=== PATIENT | female | born 1960 | race African-American/Black ===

== ENCOUNTER 2016-06-19 13:35 | Emergency (ER) | payer OTHER ==
[~2016-06-19] VITALS: Ht 165.1 cm; Wt 68.0 kg
[~2016-06-19 13:35] MED LIST: ACETAMINOPHEN325 M1 PO; ALEVE220 M1 PO; APAP500 PO; ASPIRIN EC81 M1 PO; BISAC-EVAC10 MG RECTAL; FLEXERIL PO; IBUPROFEN 600600 M1 PO; IBUPROFEN 800800 M1 PO; LEXAPRO 10 MG T10 M1 PO; LIPITOR10 MG PO; LISINOPRIL20 MG PO; LORTAB 5-500 T1 EAC1 PO; NOHOMEMEDICATIONS; NORCO 5-325 TA1 EACH PO; ONDANSETRON HCL4 M2 PO; PAIN & FEVER325 MG PO; SIMETHICON CHEW80 M1 PO; VENTOLIN HFA 1818 GM INH; ZPAK PO
== END 2016-06-19 16:14 | disposition home or self-care (01) ==
LOC: ER 13:35
DX: S00.93XA Contusion of unspecified part of head, initial encounter (principal); I10 Essential (primary) hypertension; E11.9 Type 2 diabetes mellitus without complications; Z90.710 Acquired absence of both cervix and uterus; Z98.890 Other specified postprocedural states; Z87.891 Personal history of nicotine dependence; W22.09XA Striking against other stationary object, initial encounter; Y93.89 Activity, other specified; Y92.89 Other specified places as the place of occurrence of the external cause; Y99.8 Other external cause status

== ENCOUNTER 2016-06-23 13:54 | Emergency (ER) | payer OTHER ==
[~2016-06-23] VITALS: Ht 165.1 cm; Wt 68.0 kg
[2016-06-23] MEDS ORDERED: TESSALON PERLE100 MG PO (14:36)
[2016-06-23] MEDS ORDERED: IBUPROFEN 600600 M1 PO (14:40)
== END 2016-06-23 15:17 | disposition home or self-care (01) ==
LOC: ER 13:54
DX: J06.9 Acute upper respiratory infection, unspecified (principal); I10 Essential (primary) hypertension; E11.9 Type 2 diabetes mellitus without complications; Z90.710 Acquired absence of both cervix and uterus; Z98.890 Other specified postprocedural states; Z87.891 Personal history of nicotine dependence

== ENCOUNTER 2016-10-07 15:24 | Emergency (ER) | payer OTHER ==
[~2016-10-07] VITALS: Ht 165.1 cm; Wt 72.6 kg
[~2016-10-07 15:24] MED LIST changes: +TESSALON PERLE100 MG PO
[2016-10-07 16:23] LABS: ABSOLUTE NEUTROPHILS 2.7 thou/uL (1.4-8.2); BASOPHILS 0.9 % (0.0-2.0); EOSINOPHILS 2.8 % (0.0-3.0); HEMATOCRIT 35.4 % (37.0-47.0); HEMOGLOBIN 11.7 gm/dL (12.0-15.0); LYMPHOCYTES 31.1 % (24.0-44.0); MCHC 33.2 g/dL (28.0-37.0); MCV 75.4 fL (80.0-100.0); MONOCYTES 9.9 % (1.0-8.0); PLATELET COUNT 215 thou/uL (150-400); POLYS 55.3 % (36.0-66.0); RDW 14.4 % (10.5-14.5); WBC 4.9 thou/uL (4.0-11.0)
[2016-10-07 16:24] LABS: MANUAL DIFF NO
[2016-10-07 16:40] LABS: CALCIUM 8.6 mg/dL (8.5-10.1); CREATININE 0.9 mg/dL (0.6-1.0); POTASSIUM 3.8 mmol/L (3.5-5.1)
[2016-10-07 16:45] LABS: ALBUMIN 3.4 g/dL (3.4-5.0); TOTAL BILIRUBIN 0.3 mg/dL (<0.1-1.0); TOTAL PROTEIN 7.5 g/dL (6.4-8.2)
[2016-10-07] MEDS ORDERED: PROCTOFOAM15 GM TP (17:00)
== END 2016-10-07 17:17 | disposition home or self-care (01) ==
LOC: ER 15:24
PROVIDERS: Physician Assistant
DX: K64.9 Unspecified hemorrhoids (principal); I10 Essential (primary) hypertension; E78.00 Pure hypercholesterolemia, unspecified; E11.9 Type 2 diabetes mellitus without complications; Z90.710 Acquired absence of both cervix and uterus; Z90.89 Acquired absence of other organs; Z87.891 Personal history of nicotine dependence

== ENCOUNTER 2018-11-17 10:35 | Emergency (ER) | payer OTHER ==
[~2018-11-17] VITALS: Ht 165.1 cm; Wt 69.0 kg
[~2018-11-17 10:35] MED LIST changes: +PROCTOFOAM15 GM TP
[2018-11-17 11:58] VITALS: BP 159/94
[2018-11-17] MEDS ORDERED: NORFLEX100 MG PO (13:01)
[2018-11-17] MEDS ORDERED: PREDNISONE 10 M10 MG PO (13:01)
[2018-11-17] MEDS ORDERED: HYDROCODONE-AP1 EAC6 PO (13:01)
[2018-11-17 14:10] LABS: URINE BILIRUBIN NEGATIVE (Negative); URINE BLOOD NEGATIVE (Negative); URINE CLARITY CLEAR; URINE COLOR YELLOW; URINE GLUCOSE-RANDOM* NEGATIVE (Negative); URINE KETONES NEGATIVE (Negative); URINE LEUKOCYTES-REFLEX NEGATIVE (Negative); URINE NITRITE-REFLEX NEGATIVE (Negative); URINE PROTEIN (DIPSTICK) NEGATIVE (Negative); URINE SPECIFIC GRAVITY 1.025 (1.005-1.035); URINE UROBILINOGEN 0.2 E.U./dl (0.2-1.0)
== END 2018-11-17 15:53 | disposition home or self-care (01) ==
LOC: ER 10:35
PROVIDERS: Physician Assistant
DX: S39.012A Strain of muscle, fascia and tendon of lower back, initial encounter (principal); I10 Essential (primary) hypertension; E78.00 Pure hypercholesterolemia, unspecified; E11.9 Type 2 diabetes mellitus without complications; Z90.710 Acquired absence of both cervix and uterus; Z98.890 Other specified postprocedural states; Z87.891 Personal history of nicotine dependence; X50.9XXA Other and unspecified overexertion or strenuous movements or postures, initial encounter; Y93.89 Activity, other specified; Y92.89 Other specified places as the place of occurrence of the external cause; Y99.8 Other external cause status

== ENCOUNTER 2019-09-04 10:41 | Emergency (ER) | payer OTHER ==
[~2019-09-04] VITALS: Ht 165.1 cm; Wt 72.6 kg
[~2019-09-04 10:41] MED LIST changes: +HYDROCODONE-AP1 EAC6 PO; +NORFLEX100 MG PO; +PREDNISONE 10 M10 MG PO
[2019-09-04 11:27] LABS: ABSOLUTE NEUTROPHILS 2.5 thou/uL (1.4-8.2); BASOPHILS 0.4 % (0.0-2.0); EOSINOPHILS 2.6 % (0.0-3.0); HEMATOCRIT 38.1 % (37.0-47.0); HEMOGLOBIN 12.1 gm/dL (12.0-15.0); LYMPHOCYTES 34.5 % (24.0-44.0); MCHC 31.7 g/dL (28.0-37.0); MCV 78.7 fL (80.0-100.0); MONOCYTES 10.2 % (1.0-8.0); PLATELET COUNT 235 thou/uL (150-400); POLYS 52.3 % (36.0-66.0); RBC 4.84 mil/uL (4.20-5.00); RDW 14.9 % (10.5-14.5); WBC 4.9 thou/uL (4.0-11.0)
[2019-09-04 11:36] LABS: CALCIUM 9.5 mg/dL (8.5-10.1); CREATININE 0.9 mg/dL (0.6-1.0); POTASSIUM 3.8 mmol/L (3.5-5.1)
[2019-09-04 11:42] LABS: ALBUMIN 3.6 g/dL (3.4-5.0); TOTAL BILIRUBIN 0.3 mg/dL (<0.1-1.0); TOTAL PROTEIN 7.7 g/dL (6.4-8.2)
[2019-09-04 13:28] VITALS: BP 127/74
== END 2019-09-04 14:00 | disposition home or self-care (01) ==
LOC: ER 10:41
PROVIDERS: Emergency Medicine
DX: R05 Cough (principal); I10 Essential (primary) hypertension; E11.9 Type 2 diabetes mellitus without complications; E78.5 Hyperlipidemia, unspecified; Z87.891 Personal history of nicotine dependence; Z90.710 Acquired absence of both cervix and uterus; Z90.89 Acquired absence of other organs; Z79.899 Other long term (current) drug therapy

== ENCOUNTER 2019-12-15 13:21 | Emergency (ER) | payer OTHER ==
[~2019-12-15] VITALS: Ht 165.1 cm; Wt 74.8 kg
[2019-12-15 15:08] LABS: ABSOLUTE NEUTROPHILS 3.1 thou/uL (1.4-8.2); BASOPHILS 0.8 % (0.0-2.0); EOSINOPHILS 2.8 % (0.0-3.0); HEMATOCRIT 36.5 % (37.0-47.0); HEMOGLOBIN 11.8 gm/dL (12.0-15.0); LYMPHOCYTES 31.4 % (24.0-44.0); MCH 25.5 pg (26.0-34.0); MCHC 32.5 g/dL (28.0-37.0); MCV 78.5 fL (80.0-100.0); MONOCYTES 9.5 % (1.0-8.0); PLATELET COUNT 244 thou/uL (150-400); POLYS 55.5 % (36.0-66.0); RBC 4.65 mil/uL (4.20-5.00); RDW 14.8 % (10.5-14.5); WBC 5.5 thou/uL (4.0-11.0)
[2019-12-15 15:16] LABS: ANION GAP 4 mmol/L (7-16); BUN 17 mg/dL (7-18); CALCIUM 8.9 mg/dL (8.5-10.1); CHLORIDE 109 mmol/L (98-107); CO2 30 mmol/L (21-32); CREATININE 1.5 mg/dL (0.6-1.0); GLUCOSE 107 mg/dL (74-106); POTASSIUM 4.6 mmol/L (3.5-5.1); SODIUM 143 mmol/L (136-145)
[2019-12-15 15:26] LABS: ALBUMIN 3.5 g/dL (3.4-5.0); SGOT 16 U/L (15-37); SGPT 19 U/L (30-65); TOTAL BILIRUBIN 0.3 mg/dL (0.2-1.0); TROPONIN-I <0.06 ng/mL (<0.06)
[2019-12-15] MEDS ORDERED: NORCO 10-325 T1 EACH PO (15:37)
[2019-12-15] MEDS ORDERED: CYCLOBENZAPRINE5 MG PO (15:37)
[2019-12-15] MEDS ORDERED: MEDROLDOSEPACK PO (15:37)
[2019-12-15 15:59] VITALS: BP 169/89
--- NOTE | 2019-12-16 08:09 | EKG ---
[facility] [place] [address] ELECTROCARDIOGRAM REPORT Name: LILLY MORRISON Room #: DEP [facility]#: [id number] Admission: 12/15/19 Attend Phys: Discharge: 12/15/19 Date of : 64 Report #: [id number] THIS REPORT FOR: cc: Eula Huang Raina L. DO Lundgren, Craig H. 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 : 1960 Requested By: Alexis Allen Order Number: [id number] MD: Nicholas Mike Measurements Intervals [place] Rate: 64 P: 40 IA: 182 QRS: 40 QRSD: 69 T: 38 QT: 386 QTc: 399 Interpretive Statements Sinus rhythm Baseline wander in lead(s) II,aVR Compared to ECG 08/02/2015 19:39:17 No significant changes Electronically Signed On 12-16-2019 8:08:50 CDT by Nicholas Mike [email or web address] <ELECTRONICALLY SIGNED> By: Nicholas Mike MD, [facility] 12/16/19 0808 [id number] 1445 Nicholas Mike MD, [facility] /EPI
== END 2019-12-15 16:02 | disposition home or self-care (01) ==
LOC: ER 13:21
PROVIDERS: Physician Assistant
DX: M54.12 Radiculopathy, cervical region (principal); I10 Essential (primary) hypertension; E11.9 Type 2 diabetes mellitus without complications; E78.5 Hyperlipidemia, unspecified; Z87.891 Personal history of nicotine dependence; Z90.710 Acquired absence of both cervix and uterus; Z90.89 Acquired absence of other organs

== ENCOUNTER 2020-12-14 16:38 | Emergency (ER) | payer OTHER ==
[~2020-12-14] VITALS: Ht 165.1 cm; Wt 74.4 kg
[~2020-12-14 16:38] MED LIST changes: +CYCLOBENZAPRINE5 MG PO; +MEDROLDOSEPACK PO; +NORCO 10-325 T1 EACH PO
[2020-12-14] MEDS ORDERED: IBUPROFEN 800800 M1 PO (17:04)
[2020-12-14] MEDS ORDERED: COZAAR 25 MG TA25 MG PO (17:04)
[2020-12-14 18:48] LABS: ABSOLUTE NEUTROPHILS 3.3 thou/uL (1.4-8.2); BASOPHILS 0.3 % (0.0-2.0); EOSINOPHILS 1.7 % (0.0-3.0); HEMATOCRIT 36.2 % (37.0-47.0); HEMOGLOBIN 11.7 gm/dL (12.0-15.0); LYMPHOCYTES 32.5 % (24.0-44.0); MCH 25.2 pg (26.0-34.0); MCHC 32.3 g/dL (28.0-37.0); MCV 78.2 fL (80.0-100.0); PLATELET COUNT 230 thou/uL (150-400); POLYS 55.5 % (36.0-66.0); RBC 4.63 mil/uL (4.20-5.00); RDW 14.8 % (10.5-14.5); WBC 5.9 thou/uL (4.0-11.0)
[2020-12-14 19:20] LABS: ANION GAP 10 mmol/L (7-16); BUN 16 mg/dL (7-18); CALCIUM 9.1 mg/dL (8.5-10.1); CHLORIDE 110 mmol/L (98-107); CO2 25 mmol/L (21-32); GLUCOSE 111 mg/dL (74-106); SODIUM 145 mmol/L (136-145)
[2020-12-14 19:25] LABS: ALBUMIN 3.5 g/dL (3.4-5.0); SGOT 10 U/L (15-37); SGPT 18 U/L (14-59); TOTAL BILIRUBIN 0.2 mg/dL (0.2-1.0); TOTAL PROTEIN 7.6 g/dL (6.4-8.2); TROPONIN-I <0.06 ng/mL (<0.06)
[2020-12-14 21:02] VITALS: BP 139/89
--- NOTE | 2020-12-15 06:44 | EKG ---
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
== END 2020-12-14 21:02 | disposition home or self-care (01) ==
LOC: ER 16:38
PROVIDERS: Emergency Medicine Emergency Medical Services
DX: K21.9 Gastro-esophageal reflux disease without esophagitis (principal); E78.00 Pure hypercholesterolemia, unspecified; F17.210 Nicotine dependence, cigarettes, uncomplicated; I10 Essential (primary) hypertension; E11.9 Type 2 diabetes mellitus without complications; Z90.710 Acquired absence of both cervix and uterus; Z90.89 Acquired absence of other organs; Z87.891 Personal history of nicotine dependence